=== PATIENT | female | born 1995 | race African-American/Black ===

== ENCOUNTER 2016-11-22 16:01 | Emergency (ER) | payer OTHER ==
[~2016-11-22] VITALS: Ht 170.2 cm; Wt 96.7 kg
[~2016-11-22 16:01] MED LIST: MOTRIN800 MG PO; PEN-VEE K,VEET500 MG PO; TYLENOL WITH C1 EACH PO
[2016-11-22 18:10] LABS: ADD MIUA? YES; BILIRUBIN NEGATIVE; BLOOD SMALL; COLOR YELLOW ((YELLOW)); GLUCOSE (STRIP) NEGATIVE; KETONES NEGATIVE; LEUKOCYTES NEGATIVE; NITRITE NEGATIVE; PROTEIN (STRIP) 30; SPECIFIC GRAVITY 1.025 (1.000-1.030); UROBILINOGEN 0.2 MG/DL (0.2-1.0)
[2016-11-22 18:33] LABS: BACTERIA 1+ /HPF; EPITHELIAL CELLS 1+ /HPF; MUCUS 1+ /LPF; WHITE BLOOD CELLS 0-5 /HPF (0-5)
[2016-11-22 18:34] LABS: CASTS NONE SEEN /LPF; CRYSTALS NONE SEEN
[2016-11-22 18:49] LABS: HEMATOCRIT 35.3 % (36.0-46.0); MCH 24.2 PG (29.0-34.0); MCHC 31.4 G/DL (30.0-36.0); MCV 77.1 FL (83-99); MEAN PLAT.VOLUME 12.5 uM^3 (9.5-12.4); PLATELET COUNT 230 K/uL (156-360); RBC DIS.WIDTH-CV 16.9 % (11.8-14.6); RBC DIS.WIDTH-SD 45.6 % (39-53); RED BLOOD COUNT 4.58 M/uL (3.80-5.20); WHITE BLOOD COUNT 7.5 K/uL (4.1-10.2)
[2016-11-22 18:58] LABS: CHLORIDE 108 mEq/L (99-109); POTASSIUM 4.1 mEq/L (3.7-5.4); SODIUM 142 mEq/L (136-147)
[2016-11-22 18:59] LABS: GLUCOSE 86 mg/dL (70-99)
[2016-11-22 19:01] LABS: ANION GAP 9 MEQ/L (2-14)
[2016-11-22 19:03] LABS: GFR ESTIMATE (CALCULATED) > 59 mL/min/
[2016-11-22 19:04] LABS: UREA NITROGEN (BUN) 9 mg/dL (9-23)
[2016-11-22 19:11] LABS: QUANTITATIVE HCG < 4.0 MIU/ML
[2016-11-22 19:46] VITALS: BP 126/78
== END 2016-11-22 19:47 | disposition home or self-care (01) ==
LOC: EME 16:01
PROVIDERS: Nurse Practitioner Family
DX: N92.6 Irregular menstruation, unspecified (principal); N83.201 Unspecified ovarian cyst, right side; N83.202 Unspecified ovarian cyst, left side; J45.909 Unspecified asthma, uncomplicated; F17.200 Nicotine dependence, unspecified, uncomplicated
CPT/HCPCS: 76856; 80048; 81003; 84702; 85027

== ENCOUNTER 2016-12-26 20:29 | Emergency (ER) | payer OTHER ==
[~2016-12-26] VITALS: Ht 170.2 cm; Wt 96.3 kg
[2016-12-26 21:07] LABS: HEMATOCRIT 27.6 % (36.0-46.0); MCH 23.7 PG (29.0-34.0); MCHC 31.5 G/DL (30.0-36.0); MCV 75.2 FL (83-99); MEAN PLAT.VOLUME 11.9 uM^3 (9.5-12.4); PLATELET COUNT 250 K/uL (156-360); RBC DIS.WIDTH-CV 15.3 % (11.8-14.6); RBC DIS.WIDTH-SD 42.2 % (39-53); RED BLOOD COUNT 3.67 M/uL (3.80-5.20); WHITE BLOOD COUNT 9.1 K/uL (4.1-10.2)
[2016-12-26] MEDS ORDERED: MEGESTROL ACETA20 MG PO (21:23)
[2016-12-26 21:32] LABS: CHLORIDE 110 mEq/L (99-109); POTASSIUM 3.4 mEq/L (3.7-5.4); SODIUM 141 mEq/L (136-147)
[2016-12-26 21:34] LABS: GLUCOSE 105 mg/dL (70-99)
[2016-12-26 21:35] LABS: ANION GAP 9 MEQ/L (2-14)
[2016-12-26 21:36] LABS: TOTAL BILIRUBIN 0.2 mg/dL (0.0-1.0)
[2016-12-26 21:37] LABS: ALKALINE PHOSPHATASE 55 IU/L (3-129)
[2016-12-26 21:38] LABS: GFR ESTIMATE (CALCULATED) > 59 mL/min/
[2016-12-26 21:39] LABS: UREA NITROGEN (BUN) 12 mg/dL (9-23)
[2016-12-26 21:46] LABS: QUANTITATIVE HCG < 4.0 MIU/ML
[2016-12-26] MEDS ORDERED: DASETTA1 EACH PO (22:50)
[2016-12-26 23:15] VITALS: BP 152/99
== END 2016-12-26 23:18 | disposition home or self-care (01) ==
LOC: EME 20:29
DX: N93.9 Abnormal uterine and vaginal bleeding, unspecified (principal); D64.9 Anemia, unspecified; F17.200 Nicotine dependence, unspecified, uncomplicated
CPT/HCPCS: 80053; 81003; 84702; 85027; 99281; 99284

== ENCOUNTER 2017-01-09 12:04 | Day surgery (SDC) | payer OTHER ==
[~2017-01-09] VITALS: Ht 170.2 cm; Wt 93.4 kg
[~2017-01-09 12:04] MED LIST changes: +DASETTA1 EACH PO; +MEGESTROL ACETA20 MG PO
[2017-01-09 12:42] VITALS: BP 110/75
[2017-01-09 15:20] VITALS: BP 123/85
[2017-01-09 16:20] VITALS: BP 112/70
== END 2017-01-09 16:40 | disposition home or self-care (01) ==
LOC: SDC 12:04
PROC: 0UDB8ZX Extraction of Endometrium, Via Natural or Artificial Opening Endoscopic, Diagnostic (ICD-10-PCS; principal; 2017-01-09)
DX: N92.1 Excessive and frequent menstruation with irregular cycle (principal); D64.9 Anemia, unspecified; E66.9 Obesity, unspecified; Z83.3 Family history of diabetes mellitus; Z82.49 Family history of ischemic heart disease and other diseases of the circulatory system; Z72.0 Tobacco use
CPT/HCPCS: 88305; 93005; J1100; J2250; J2405; J3010

== ENCOUNTER 2017-02-27 10:01 | Emergency (ER) | payer OTHER ==
[~2017-02-27] VITALS: Ht 170.2 cm; Wt 93.3 kg
[2017-02-27 10:37] VITALS: BP 127/77
[2017-02-28] MEDS ORDERED: BENADRYL50 MG PO (21:45)
[2017-02-28] MEDS ORDERED: KEFLEX500 MG PO (21:45)
[2017-02-28] MEDS ORDERED: PREDNISONE50 MG PO (21:45)
== END 2017-02-27 13:04 | disposition left against medical advice (07) ==
LOC: EME 10:01
DX: L98.9 Disorder of the skin and subcutaneous tissue, unspecified (principal); Z53.21 Procedure and treatment not carried out due to patient leaving prior to being seen by health care provider

== ENCOUNTER 2017-02-28 03:17 | Emergency (ER) | payer OTHER ==
[~2017-02-28] VITALS: Ht 170.2 cm; Wt 93.1 kg
[2017-02-28 04:21] VITALS: BP 134/86
[2017-02-28] MEDS ORDERED: PREDNISONE50 MG PO (21:45)
[2017-02-28] MEDS ORDERED: BENADRYL50 MG PO (21:45)
[2017-02-28] MEDS ORDERED: KEFLEX500 MG PO (21:45)
== END 2017-02-28 04:22 | disposition home or self-care (01) ==
LOC: EME 03:17
DX: T20.55XA Corrosion of first degree of scalp [any part], initial encounter (principal); Z72.0 Tobacco use
CPT/HCPCS: 99281; 99284

== ENCOUNTER 2017-02-28 16:36 | Emergency (ER) | payer OTHER ==
[~2017-02-28] VITALS: Ht 170.2 cm; Wt 93.0 kg
[2017-02-28] MEDS ORDERED: PREDNISONE50 MG PO (21:45)
[2017-02-28] MEDS ORDERED: BENADRYL50 MG PO (21:45)
[2017-02-28] MEDS ORDERED: KEFLEX500 MG PO (21:45)
[2017-02-28 22:01] VITALS: BP 128/85
== END 2017-02-28 22:05 | disposition home or self-care (01) ==
LOC: EME 16:36
DX: T65.6X4A Toxic effect of paints and dyes, not elsewhere classified, undetermined, initial encounter (principal); R22.0 Localized swelling, mass and lump, head; F17.200 Nicotine dependence, unspecified, uncomplicated
CPT/HCPCS: 70360; 99281; 99285; J1200; J2930

== ENCOUNTER 2017-07-21 07:13 | Emergency (ER) | payer OTHER ==
[~2017-07-21] VITALS: Ht 170.2 cm; Wt 91.0 kg
[~2017-07-21 07:13] MED LIST changes: +BENADRYL50 MG PO; +KEFLEX500 MG PO; +PREDNISONE50 MG PO
[2017-07-21] MEDS ORDERED: PERCOCET 5/31 TABLET PO (08:27)
[2017-07-21] MEDS ORDERED: BACTRIM,SEPT1 TABLET PO (08:27)
[2017-07-21] MEDS ORDERED: AUGMENTIN875 MG PO (08:27)
[2017-07-21 09:16] VITALS: BP 146/85
== END 2017-07-21 09:17 | disposition home or self-care (01) ==
LOC: EME 07:13
PROC: 0991XZZ Drainage of Left External Ear, External Approach (ICD-10-PCS; principal; 2017-07-21)
DX: H60.02 Abscess of left external ear (principal); F17.200 Nicotine dependence, unspecified, uncomplicated
CPT/HCPCS: 99281; 99284